=== PATIENT | male | born 2005 | race Caucasian/White ===

== ENCOUNTER 2023-06-20 19:14 | Emergency (ER) | payer BC, MEDICAID ==
[~2023-06-20] VITALS: Ht 180.3 cm; Wt 81.6 kg
[2023-06-20 19:40] VITALS: BP 118/77; PULSE 84; RESP 17; TEMP 97.8; O2SAT 100
[2023-06-20 19:42] VITALS: BP 118/77; PULSE 84; RESP 17; TEMP 97.8; O2SAT 100
[2023-06-20] MEDS ORDERED: KETOROLAC 30 MG/ML VIAL IM ONE (20:15)
[2023-06-20] MEDS ORDERED: CYCLOBENZAPRINE 10 MG TAB PO ONE (20:15)
[2023-06-20] MEDS ORDERED: LIDOCAINE/PRILOCAINE 2.5% 5 GM TUBE TP ONE (20:20)
[2023-06-20] MEDS ORDERED: ACET-10509 PO (23:02)
[2023-06-20] MEDS ORDERED: LIDO76.56 TP (23:02)
[2023-06-20] MEDS ORDERED: IBUP-2218 PO (23:02)
[2023-06-20] MEDS ORDERED: CYCL-711 PO (23:02)
== END 2023-06-20 23:20 | disposition home or self-care (01) ==
LOC: MED 19:14
DX: M54.50 Low back pain, unspecified (principal); Z79.899 Other long term (current) drug therapy
CPT/HCPCS: 72110; 96372; 99283; J1885